=== PATIENT | male | born 1995 | race Hispanic/Latino ===

== ENCOUNTER 2023-02-17 11:03 | Emergency (ER) | payer SELFPAY ==
[~2023-02-17] VITALS: Ht 175.3 cm; Wt 61.2 kg
[2023-02-17] MEDS ORDERED: SODIUM CHLORIDE 0.9% 1000ML 1,000 ML IV STA (11:33)
[2023-02-17] MEDS ORDERED: ONDANSETRON HCL INJ 2MG/ML 2ML 2 MG/ML VIAL IV STA (11:33)
[2023-02-17] MEDS ORDERED: FAMOTIDINE 20 MG/2 ML VIAL IV STA (11:33)
[2023-02-17] MEDS ORDERED: DONNATAL/LIDOCAINE/MAALOX 30 ML SUSP PO ONE (11:45)
[2023-02-17] MEDS ORDERED: MAGNESIUM/ALUMINUM/SIMETHICONE 30 ML UDC ONE (11:52)
[2023-02-17] MEDS ORDERED: LIDOCAINE VISC 2% SOLN 15 ML UDC ONE (11:52)
[2023-02-17] MEDS ORDERED: BELLADONNA ALK/PHENOBARBITAL 5 ML UDC ONE (11:52)
[2023-02-17 11:53] LABS: BASOPHILS % 0.2 % (0.0-1.0); HEMOGLOBIN 16.3 g/dL (14.0-18.0); LYMPHOCYTES # (AUTO) 1.6 (1.0-3.2); LYMPHOCYTES % 15.5 % (18.0-39.1); MEAN CORPUSCULAR HGB CONC 36.2 g/dL (31-35); MEAN CORPUSCULAR VOLUME 88.2 fL (81-99); MONOCYTES # (AUTO) 0.4 (0.2-0.8); MONOCYTES % 4.3 % (4.4-11.3); NEUTROPHILS # (AUTO) 8.2 (2.1-6.9); NEUTROPHILS % 79.9 % (38.7-80.0); PLATELET COUNT 249 x10e3/uL (140-360); RED CELL DISTRIBUTION WIDTH 11.5 % (11.7-14.4)
[2023-02-17 12:29] LABS: ANION GAP 16.2 mmol/L (8-16); BLOOD UREA NITROGEN 24 mg/dL (7-26); BUN/CREATININE RATIO 25 (6-25); CALCIUM 10.3 mg/dL (8.4-10.2); CARBON DIOXIDE 20 mmol/L (22-29); CHLORIDE 107 mmol/L (98-107); CREATININE, SERUM 0.95 mg/dL (0.72-1.25); GLUCOSE 115 mg/dL (74-118); LIPASE < 4 U/L (8-78); POTASSIUM 4.2 mmol/L (3.5-5.1); SODIUM 139 mmol/L (136-145)
[2023-02-17] MEDS ORDERED: SUCRALFATE1 GM PO (12:39)
[2023-02-17] MEDS ORDERED: OMEPRAZOLE40 MG PO (12:39)
[2023-02-17 12:59] VITALS: O2SAT 100
== END 2023-02-17 13:21 | disposition home or self-care (01) ==
LOC: ER 11:09
DX: R10.10 Upper abdominal pain, unspecified (principal); K21.00 Gastro-esophageal reflux disease with esophagitis, without bleeding; R11.2 Nausea with vomiting, unspecified; Z87.442 Personal history of urinary calculi; F17.210 Nicotine dependence, cigarettes, uncomplicated
CPT/HCPCS: 36415; 80048; 83690; 85025; 99283; J2405; J7030